=== PATIENT | female | born 1940 | race Caucasian/White ===

== ENCOUNTER → 2016-08-28 | Outpatient (CLI) | payer MEDICARE, OTHER ==
[~2016-08-28] MED LIST: ALBUTEROL17 GM INH; TENORMIN50 MG PO; TYLENOL ARTHRITIS PO; ZANTAC150 M1 PO
--- NOTE | ~2016-08-28 | MR176 ---
[facility] A Service of [facility] & [facility] RADIOLOGY TEXT RESULTS PATIENT: EDDY GILBERT LOCATION: [facility] : 41 UNIT #: [id number] AGE: [address]: Ana Bojorquez MD SEX: F ORDER DR: [id number] [place] [id number] O MR#: [id number] Acc #: [id number] NAME: EDDY GILBERT. : 1940 SEX: F STUDY DATE/TIME: 08/28/2016 14:30 UNIT: [facility] ROOM: STUDY DESCRIPTION: MR Thoracic Wo Contrast Attending Physician: Ana Bojorquez M.D. Referring Physician: nAa Bojorquez M.D. Ordering Physician: Ana Bojorquez M.D. Primary Care Physician: Ana Bojorquez M.D. MRI CENTER REPORT This report is preliminary unless electronic signature is present. EXAM Thoracic MRI without. HISTORY Low back pain. No known injury or surgery. Patient had plain films recently for shingles showing compression fractures, age indeterminate, for further evaluation. Mid back pain. Decreased mobility for four months. COMMENT MRI of the thoracic spine was performed without contrast using routine 1.5T wide-bore imaging technique. Plain film comparison is from 08/21/2016. There is again a compression fracture at T9 which appears chronic centered at the inferior endplate of T9. The anterior wedging and associated with about 38% loss of anterior vertebral body height and 6% loss of posterior vertebral body height. There is no significant associated canal stenosis. There is only minimal posterior-inferior cortical buckling appreciated. There is some type 2 marrow endplate degenerative changes and this is consistent with a chronic compression fracture healed with some deformity. There is additionally a small left paramedian disc protrusion/extrusion at T7-8 with mild flattening of the left anterior cord but the cord is otherwise found by CSF. Mild bilateral facet degenerative change. There is no thoracic canal stenosis. The thoracic cord is normal in size. There is however signal abnormality within the cord centrally most apparent T4-T5. It is consistent with a syrinx and it measures about 3 mm in diameter. Full extent is from about T3 to about T10, though it is difficult to see well at the upper and lower margin where the syrinx is smaller. There is no Chiari-I malformation on the counting localizing sequence. I would recommend correlation with postcontrast imaging to exclude pathologic enhancement. Etiology of the syrinx is not determined at this time. Thoracic intervertebral discs are mildly desiccated in general. [facility] A Service of [facility] RADIOLOGY TEXT RESULTS PATIENT: EDDY GILBERT LOCATION: [facility] : 41 UNIT #: [id number] AGE: [address]: Ana Bojorquez MD SEX: F ORDER DR: IMPRESSION 1. There is a chronic compression fracture at T9 with anterior wedging centered at the inferior endplate likely osteoporotic in etiology and healed with deformity. It results in about 38% loss of anterior vertebral body height. There is minor posterior cortical buckling but there is no associated canal stenosis. 2. There is a small disc protrusion/extrusion at T7-8 left paramedian location with some flattening of the anterior cord left of midline but no canal stenosis. 3. There is a syrinx cavity which is incompletely characterized. It is largest at about T4-T5 level up to about 3 mm in diameter. There is no evidence for Chiari-I malformation. There is no evidence for thoracic canal stenosis. I would recommend correlation with postcontrast imaging to exclude pathologic enhancement/mass lesion. Nothing to suggest a mass lesion at this time. 1. Dictated by... Shelby Guerrero M.D. THIS IS AN ELECTRONICALLY VERIFIED REPORT Shelby Guerrero M.D. at 08/29/2016 4:35 PM RACHEL/sarah TD: 08/29/2016 10:42 JOB #: [id number] MRI CENTER REPORT Page 1 of 1
--- NOTE | ~2016-08-28 | MR113 ---
[facility] A Service of [facility] & [facility] RADIOLOGY TEXT RESULTS PATIENT: EDDY GILBERT LOCATION: [facility] : 42 UNIT #: [id number] AGE: [address]: Ana Bojorquez MD SEX: F ORDER DR: [id number] [place] [id number] O MR#: [id number] Acc #: [id number] NAME: EDDY GILBERT. : 1940 SEX: F STUDY DATE/TIME: 08/28/2016 15:10 UNIT: [facility] ROOM: STUDY DESCRIPTION: MR Lumbar Wo Contrast Attending Physician: Ana Bojorquez M.D. Referring Physician: Ana Bojorquez M.D. Ordering Physician: Ana Bojorquez M.D. Primary Care Physician: Ana Bojorquez M.D. MRI CENTER REPORT This report is preliminary unless electronic signature is present. EXAM MRI lumbar spine without HISTORY Low-back pain. No known injury or surgery. Patient recently had shingles and had x-rays this should compression fractures for further evaluation. Evaluate old versus new. Patient has low back pain and decreased mobility for about 4 months. No history of cancer. COMMENTS MRI of the lumbar spine performed without contrast using routine 1.5T imaging technique on a wide bore system. Plain film comparison is from 02/21/2017. FINDINGS There is about 6-7 mm of anterolisthesis of L3-L4, grade 1 and probably secondary to severe facet arthritis. There is disc desiccation 2-3, 3-4, 4-5 levels with loss of intervertebral disc height most severe at 3-4. There is associated marrow endplate degenerative change predominately type 2 at the 3-4 level. Chronic compression fracture L3 is seen centered at the superior endplate and most prominent centrally where measures up to about 32%. It is not associated with significant posterior cortical buckling. There is some anterior cortical buckling. No recent compression fracture is suspected. This was likely osteoporotic in etiology given that it is healed with some deformity. The conus medullaris terminates at L1 and is normal. At L1-2, there is mild bilateral facet degenerative change. There is no focal disc protrusion or extrusion canal or foraminal impingement. At L2-3, moderate facet degenerative change bilaterally, ieox-zt-uhhncpzh concentric disc bulge endplate spondylosis. Combination of findings result in at least moderate central canal stenosis with mass effect on the STS. [facility] A Service of [facility] & [facility] RADIOLOGY TEXT RESULTS PATIENT: EDDY GILBERT LOCATION: [facility] : 41 UNIT #: [id number] AGE: [address]: Ana Bojorquez MD SEX: F ORDER DR: bilateral-lateral recesses and wxwu-xt-soyekkfr bilateral foraminal impingement. At L3-4, there is bilateral facet degenerative change worse to the left than the right fairly severe on the left more moderate on the right. There is concentric desiccated disc bulging with broad extrusion posteriorly extending cephalad from the disc remaining contiguous with it more focal right lsovgmfwkn-by-bylomqmzceuaep location and involving the right lateral recess. Combination of findings including the anterolisthesis of 3 on 4 result in severe canal stenosis and mass effect upon the bilateral-lateral recesses. There is moderate right, severe left-side foraminal narrowing and there is particular impingement on the right lateral recess by the disc extrusion. At L4-5, there is moderate facet arthritis bilaterally with a broad posterior protrusion/extrusion extending into the foramina. There is lwex-hk-mrqxqiqe left and severe right-side foraminal impingement. There is kjwggypi-fw-vtmpms central canal stenosis and mass effect on the bilateral-lateral recesses. At L5-S1, mild left moderate right-side facet degenerative change with ligamentum flavum thickening. Minor broad posterior disc bulge. No canal stenosis or foraminal compromise. Mild atrophy of lower lumbar multifidus musculature. IMPRESSION 1. Significant multilevel lumbar degenerative changes. Findings result in canal stenosis most severe at L3-4 to a lesser extent L4-L5 and L2-L3. There is also multiple level foraminal impingement. Please refer to the wuhba-rf-guvtf description and correlate with symptoms. At the 3-4 level there is 6-7 mm grade 1 anterolisthesis of L3-L4 secondary to facet arthritis. There is also a chronic compression fracture at L3 up to about 32% loss of vertebral body height, greatest at its midportion and centered at the superior endplate. This is healed with deformity and is consistent with an old osteoporotic compression fracture. No recent compression fracture is suspected. See above. Dictated by... Shelby Guerrero M.D. THIS IS AN ELECTRONICALLY VERIFIED REPORT Shelby Guerrero M.D. at 08/29/2016 4:37 PM SAC/to TD: 08/29/2016 11:49 JOB #: [id number] MRI CENTER REPORT Page 1 of 1
== END | disposition home or self-care (01) ==
LOC: SMRI 13:34
DX: M54.5 Low back pain (principal); R07.81 Pleurodynia; M84.48XD Pathological fracture, other site, subsequent encounter for fracture with routine healing; M51.24 Other intervertebral disc displacement, thoracic region; M43.16 Spondylolisthesis, lumbar region; M48.06 Spinal stenosis, lumbar region; M51.26 Other intervertebral disc displacement, lumbar region
CPT/HCPCS: 72146; 72148

== ENCOUNTER → 2016-10-08 | Outpatient (CLI) | payer MEDICARE, OTHER ==
--- NOTE | ~2016-10-08 | MR174 ---
[facility] A Service of [facility] & [facility] RADIOLOGY TEXT RESULTS PATIENT: EDDY GILBERT LOCATION: [facility] : 41 UNIT #: [id number] AGE: [address]: Ana Bojorquez MD SEX: F ORDER DR: [id number] [address] [id number] O MR#: [id number] Acc #: [id number] NAME: EDDY GILBERT : 1940 SEX: F STUDY DATE/TIME: 10/08/2016 11:29 UNIT: [facility] ROOM: STUDY DESCRIPTION: MR Thoracic W Contrast Attending Physician: Ana Bojorquez M.D. Referring Physician: Ana Bojorquez M.D. Ordering Physician: Ana Bojorquez M.D. Primary Care Physician: Ana Bojorquez M.D. MRI CENTER REPORT This report is preliminary unless electronic signature is present. EXAM Contrast-enhanced thoracic MRI. HISTORY Syrinx cavity, abnormal MRI without contrast 08/28/2016, for more complete characterization of the syrinx. COMMENT Postcontrast imaging of the thoracic spine performed. Sagittal and axial plane after 20 mL of MultiHance. Postcontrast imaging shows no evidence for pathologic enhancement. There is no evidence for mass lesion associated with the syrinx. Please refer back to the original noncontrast dictation for description of syrinx size and extent. Also please refer back to prior study for description of the compression fracture at T9. It is chronic and unchanged. IMPRESSION 1. There is no evidence for pathologic thoracic cord enhancement. Nothing to suggest mass lesion associated with the previously noted syrinx. I suspect this is an idiopathic syrinx. Dictated by... Shelby Guerrero M.D. THIS IS AN ELECTRONICALLY VERIFIED REPORT Shelby Guerrero M.D. at 10/10/2016 7:41 AM RACHEL/josue TD: 10/09/2016 17:29 JOB #: [id number] MRI CENTER REPORT STS. [facility] A Service of [facility] & [facility] RADIOLOGY TEXT RESULTS PATIENT: EDDY GILBERT LOCATION: [facility] #: [id number] : 42 UNIT #: [id number] AGE: [address]: Ana Bojorquez MD SEX: F ORDER DR: Page 1 of 1
[2016-10-08 11:55] LABS: POC - CREATININE 1.19 mg/dL (0.44-1.03)
== END | disposition home or self-care (01) ==
LOC: SMRI 10:37
PROVIDERS: Family Medicine
DX: R93.7 Abnormal findings on diagnostic imaging of other parts of musculoskeletal system (principal)
CPT/HCPCS: 72147; 82565; A9581